=== PATIENT | male | born 1955 | race Caucasian/White ===

== ENCOUNTER 2016-06-11 08:16 | Day surgery (SDC) | payer BC ==
[2016-06-06 10:40] VITALS: BMI 41.3
--- NOTE | 2016-06-10 13:31 | HP ---
DATE OF ADMISSION: 06/11/2016 Dank Turner is a 60-year-old patient seen with left knee adhesions after having undergone left total knee arthroplasty. We discussed options. He elected to proceed with left knee manipulation under anesthesia with steroid injection. Consent was obtained. Past medical history is benign prostatic hyperplasia, osteoarthritis. PAST SURGICAL HISTORY: Left total knee arthroplasty. DAILY MEDICATIONS: 1. Flomax. 2. Lasix. 3. Naprosyn. ALLERGIES: None. SOCIAL HISTORY: Patient denies tobacco use. Physical evaluation of the left knee: His range of motion is -3 to 95 degrees, his incision is well healed. There is no effusion. Ligaments are stable. There is some weakness with quadriceps and hamstring, muscle group. Distal neurovascular exam is intact. Homans and Ollie are both negative. Radiographs of the left knee revealed a stable-appearing total knee arthroplasty. IMPRESSION: 1. Left knee adhesions. 2. Left total knee arthroplasty. PLAN: Manipulation under anesthesia of the left knee with steroid injection.
[~2016-06-11 08:16] MED LIST: FAMOTIDINE 20 MG/2 ML VIAL IV PRN; HYDROmorphone 1 MG/ML 1 ML SYRINGE IVP PRN; LACTATED RINGERS 1,000 ML IV SCH; LIDOCAINE 1% 20 ML VIAL (10MG/ML) FOR IV START INTRADERMA PRN; MIDAZOLAM 2 MG/2 ML VIAL IV PRN; ONDANSETRON 4 MG/2 ML VIAL IVP PRN; ceFAZolin 3 GM in SODIUM CHLORIDE 0.9% 100 ML IVPB ONE
[2016-06-11 08:48] VITALS: TEMP 97.8
[2016-06-11 09:10] LABS: Basophils # (A) 0.1 k/uL (0-0.2); Basophils % (A) 2 %; CH 29.9; CHCM 34.6; Eosinophils # (A) 0.6 k/uL (0-0.7); Eosinophils % (A) 8 %; HCT 47.5 % (39.0-53.0); HDW 3.14; HGB 16.1 gm/dL (13.0-17.5); Luc # (Auto) 0.13; Luc % (Auto) 2; Lymphocytes # (A) 1.4 k/uL (1.0-4.8); Lymphocytes % (A) 21 %; MCH 29.4 pg (25.0-35.0); MCHC 33.8 g/dL (31.0-37.0); MCV 86.9 fL (80.0-100.0); Mean Platelet Volume 7.3; Monocytes # (A) 0.5 k/uL (0-1.0); Monocytes % (A) 8 %; Neutrophils % (A) 59 %; RBC 5.46 m/uL (4.30-5.90); RDW 14.3 % (11.5-15.5); WBC 6.7 k/uL (3.8-10.6); WBC (Perox) 6.38
[2016-06-11] MEDS ORDERED: PROPOFOL 10 MG/ML 20 ML VIAL IV ONE (09:55)
[2016-06-11] MEDS ORDERED: LIDOCAINE 1% INJ 10MG/ML (20 ML MDV) ONE (09:55)
[2016-06-11] MEDS ORDERED: fentaNYL (PF) 50 MCG/ML 2 ML AMP ONE (09:55)
[2016-06-11] MEDS ORDERED: MIDAZOLAM 2 MG/2 ML VIAL ONE (09:55)
[2016-06-11] MEDS ORDERED: BUPIVACAINE (PF) 0.75% 30 ML VIAL SQ ONE (10:18)
[2016-06-11] MEDS ORDERED: TRIAMCINOLONE ACETONIDE 40 MG/ML 1 ML VIAL IM ONE (10:18)
--- NOTE | 2016-06-11 10:24 | P.OP ---
Date of Procedure: 06/11/16 Preoperative Diagnosis: Left knee adhesions/adhesive capsulitis Postoperative Diagnosis: Same Procedure(s) Performed: Manipulation under anesthesia left knee with steroid injection Anesthesia: MAC Surgeon: Valerio Henning Estimated Blood Loss (ml): 0 Pathology: none sent Condition: stable Disposition: PACU Indications for Procedure: 60-year-old patient seen with left knee adhesions after having undergone total knee arthroplasty. We discussed options and he elected to proceed with manipulation under anesthesia left knee with steroid injection. Description of Procedure: Patient was taken to a monitored anesthesia area. IV antibiotics were administered. The patient received IV sedation by the department anesthesia. A manipulation was performed of the left knee achieving full extension and 130 of flexion. The superior lateral aspect left knee was prepped and draped in the normal sterile orthopedic fashion. A solution 1 mL Depo-Medrol and 3 mL quarter percent Marcaine were injected intra-articular under sterile technique. The knee was again taken through range of motion. A sterile Band-Aid was applied. The patient was awakened having tolerated the procedure well.
[2016-06-11] MEDS ORDERED: KETOROLAC 30 MG/ML 1 ML VIAL IVP ONE (10:37)
[2016-06-11 10:57] VITALS: RESP 16
[2016-06-11] MEDS ORDERED: HYDROcodone/APAP 7.5-325MG 1 EACH TAB PO ONE (11:04)
[2016-06-11 11:28] VITALS: BP 116/75; PULSE 78
== END 2016-06-11 11:46 | disposition home or self-care (01) ==
LOC: OR 08:16
PROVIDERS: ATTEND Orthopaedic Surgery
DX: M23.8X2 Other internal derangements of left knee (principal); Z96.652 Presence of left artificial knee joint; E66.01 Morbid (severe) obesity due to excess calories; Z68.41 Body mass index [BMI] 40.0-44.9, adult; N40.0 Benign prostatic hyperplasia without lower urinary tract symptoms; M19.90 Unspecified osteoarthritis, unspecified site; Z79.1 Long term (current) use of non-steroidal anti-inflammatories (NSAID); Z79.899 Other long term (current) drug therapy
CPT/HCPCS: 27570; 85025; 20610; J2250; J3301; J2405; J2001; J3010; J1885; J2704

== ENCOUNTER → 2017-01-30 | Outpatient (CLI) | payer BC | END | disposition home or self-care (01) | LOC: LABPAT 11:46 | PROVIDERS: ATTEND Orthopaedic Surgery | DX: Z01.812 Encounter for preprocedural laboratory examination (principal) | CPT/HCPCS: 87070 ==

== ENCOUNTER 2017-03-11 05:44 | Inpatient (IN) | payer BC ==
--- NOTE | 2017-03-10 09:47 | HP ---
HISTORY AND PHYSICAL REASON FOR ADMISSION: Surgery 03/11/2017. HISTORY OF PRESENT ILLNESS: Dank Liu is a 61-year-old patient seen with symptomatic right knee osteoarthritis. After treatment options were discussed with him, he elected to proceed with right total knee arthroplasty. Consent was obtained. Medical clearance provided by Dr. Timur Green. PAST MEDICAL HISTORY: Past medical history is benign prostatic hyperplasia, osteoarthritis. PAST SURGICAL HISTORY: Left total knee arthroplasty. DAILY MEDICATIONS: Aspirin, Flomax, Lasix. ALLERGIES: None reported. SOCIAL HISTORY: Patient denies tobacco use. PHYSICAL EXAMINATION: Evaluation right knee range of motion is -3 to 115 degrees. Tenderness medial joint line. Positive medial Tico's. Crepitus medial patellofemoral compartments and range of motion. Pain with patellofemoral compression. Ligaments stable. Hip rotation without pain. Distal neurovascular exam is intact. RADIOGRAPHS: Radiographs of the right knee revealed severe medial and moderate to severe patellofemoral compartment osteoarthritis. IMPRESSION: Right knee osteoarthritis. PLAN: Right total knee arthroplasty. Surgery 03/11/2017. MMODL / IJN: [id number] /
[~2017-03-11 05:44] MED LIST changes: +ACETAMINOPHEN TAB 500 MG TAB PO ONE; +DEXAMETHASONE SOD PHOSPHATE 10 MG/ML 1 ML VIAL IV ONE; -FAMOTIDINE 20 MG/2 ML VIAL IV PRN; -LACTATED RINGERS 1,000 ML IV SCH; -LIDOCAINE 1% 20 ML VIAL (10MG/ML) FOR IV START INTRADERMA PRN; +MELOXICAM 7.5 MG TAB PO ONE; +ONDANSETRON 4 MG/2 ML VIAL IVP ONE; -ONDANSETRON 4 MG/2 ML VIAL IVP PRN; +TRANEXAMIC ACID 1,000 MG in SODIUM CHLORIDE 0.9% 100 ML IVPB ONE
[2017-03-11] MEDS ORDERED: LACTATED RINGERS 1,000 ML IV ONE ×2 (06:07→08:20)
[2017-03-11] MEDS ORDERED: MIDAZOLAM 2 MG/2 ML VIAL IVP ONE (06:50)
[2017-03-11] MEDS ORDERED: ROPIVACAINE 1,100 MG, SODIUM CHLORIDE 0.9% 330 ML MISCELLANE PRN ×2 (07:20)
--- NOTE | 2017-03-11 07:23 | P.ONQ ---
Anesthesiology Proc Note - PNB - Peripheral Nerve Block Performed Right Adductor Canal Infusion Time Out Performed: Yes (6:45) Indication: Requested by physician Sedation Type: Sedate with meaningful contact maintained Preparation: Sterile Dressing Position: Supine Catheter: Indwelling Needle Types: Juliano Needle Size: 80mm (3") Needle Gauge: 20 Technique: Ultrasound Injectate: 0.5% Ropivacaine (see comment for volume) Blood Aspirated: No Pain Paresthesia on Injection Noted: No Resistance on Injection: Normal Events: Uneventful and Well Tolerated (20cc Ropivacaine 0.5%)
[2017-03-11] MEDS ORDERED: MIDAZOLAM 2 MG/2 ML VIAL ONE (07:30)
[2017-03-11] MEDS ORDERED: SODIUM CHLORIDE 0.9% 100 ML BAG ONE (07:30)
[2017-03-11] MEDS ORDERED: fentaNYL (PF) 50 MCG/ML 2 ML AMP ONE (07:30)
[2017-03-11] MEDS ORDERED: TRANEXAMIC ACID 1,000 MG/10 ML VIAL ONE (07:30)
[2017-03-11] MEDS ORDERED: diphenhydrAMINE 50 MG/ML 1 ML VIAL ONE (07:30)
[2017-03-11] MEDS ORDERED: ROPIVACAINE 246.25 MG, EPINEPHrine 0.5 MG, KETOROLAC 30 MG, cloNIDine HCL/PF 80 MCG, WA... MISCELLANE ONE ×5 (07:30)
[2017-03-11] MEDS ORDERED: ceFAZolin 3,000 MG in SODIUM CHLORIDE 0.9% IRRIGATIO 3,000 ML IRRIGATION ONE (08:12)
[2017-03-11] MEDS ORDERED: ONDANSETRON 4 MG/2 ML VIAL IVP PRN (09:46)
[2017-03-11] MEDS ORDERED: NALOXONE 0.4 MG/ML 1 ML VIAL IV PRN (09:46)
[2017-03-11] MEDS ORDERED: HYDROcodone/APAP 7.5-325MG 1 EACH TAB PO PRN (09:46)
[2017-03-11] MEDS ORDERED: HYDROmorphone 1 MG/ML 1 ML SYRINGE IVP PRN ×3 (09:46)
--- NOTE | 2017-03-11 09:46 | P.OP ---
Date of Procedure: 03/11/17 Preoperative Diagnosis: Right knee osteoarthritis Postoperative Diagnosis: Right knee osteoarthritis Procedure(s) Performed: Right total knee arthroplasty Implants: 1. Samira persona size 11 right cruciate retaining cemented femur 2. Samira persona size G right cemented tibia 3. Samira persona 10 mm medial congruent polyethylene tibial insert 4. Samira persona 35 mm all polyethylene cemented patella Anesthesia: regional (Adductor canal block), local, spinal Surgeon: Valerio Henning Assistant Chief Train Dispatcher #1: Izaiah Rodriguez Estimated Blood Loss (ml): 100 Pathology: other (Bone) Condition: stable Disposition: PACU Indications for Procedure: 61-year-old patient seen was symptomatically right knee osteoarthritis. After treatment options were discussed, he elected to proceed with right total knee arthroplasty. Operative Findings: See description of procedure Description of Procedure: Patient was taken to the operative suite after having an adductor canal catheter placed by the department of anesthesia. Patient underwent a spinal anesthetic by the department of anesthesia. Patient was given preoperative IV intake antibiotics and TXA. A well-padded tourniquet was placed about the right lower extremity. The lower extremity was then prepped and draped in the normal sterile orthopedic fashion. The extremity was elevated, a tourniquet was insufflated to 350. A standard anterior incision was made sharply through skin. Dissection was taken down through the subcutaneous soft tissues down to the extensor mechanism. A medial arthrotomy was performed, patella was everted and knee was flexed. There was advanced osteoarthritis noted. A proximal tibial cutting guide was positioned. Proximal tibial cut was made. A distal intramedullary femoral cutting guide was positioned, distal femoral cut made. We placed the appropriate sizing guide and selected the appropriate size. A distal 4-in-1 femoral cutting block was positioned, distal femoral cuts were made. We now placed a trial femoral component into position, along with an appropriate size tibial tray and insert. We now took the knee through range of motion and had full extension good flexion and good overall soft tissue balance noted. The patella was everted and a flush cut made with patellar quad tendon. We templated the patella, appropriate drill holes were made. An appropriate trial patella was positioned, knee was taken through full range of motion with the patella tracking very nicely. The trial patella was removed. Drill holes were made through the femoral component. All trial components were removed after marking off the appropriate rotation of the tibia. Retractors were now positioned along the proximal tibia. An appropriate keel punch was made with the appropriate size tibial guide. At this point appropriate size implants were chosen and opened. The joint was irrigated copiously with pulse lavage mechanical irrigation. The deep soft tissues were infiltrated with local analgesic. We mixed antibiotic methylmethacrylate. Once the methyl methacrylate was ready, the tibial component was cemented into place removing any excess methylmethacrylate. The femoral component was cemented into place removing the removing any excess methylmethacrylate. We then inserted the appropriate size polyethylene tibial insert. We made sure that it was locked into position. We took the knee into full extension, and then back in a flexion making sure we had removed any excess methylmethacrylate. The patellar component was then cemented down and secured with clamp. Excess methylmethacrylate removed. We kept the knee in full extension, patellar clamp in position until methylmethacrylate had hardened. Once it had hardened the patellar clamp was removed. The knee was taken through full range of motion. The patella tracked nicely. There was good soft tissue balancing. The tourniquet was now released. Additional hemostasis was achieved via electrocautery. A second gram of TXA was given. The wound was irrigated with pulse lavage mechanical irrigation. The extensor mechanism was repaired with Vicryl. We checked the repair with range of motion and it was stable. The subcutaneous soft tissues were repaired with Vicryl in layers. The skin was approximated with pernio/Dermabond. Sterile dressings were applied followed by loose web roll and Pedro bandage. The patient was transferred to a bed, and taken to recovery in stable and satisfactory condition. Patrick BLAIR assisted with the procedure.
--- NOTE | 2017-03-11 10:57 | XR ---
EXAMINATION TYPE: XR knee limited RT DATE OF EXAM: 03/11/2017 COMPARISON: NONE TECHNIQUE: Two views submitted HISTORY: Post op FINDINGS: There is a prosthetic knee in near anatomic alignment. There is soft tissue edema and emphysema. IMPRESSION: 1. Postoperative change. Appears in near-anatomic alignment
[2017-03-11 11:16] VITALS: BMI 49.8
[2017-03-11] MEDS: LACTATED RINGERS 1,000 ML IV SCH ×3 (12:37→22:22)
[2017-03-11] MEDS: traMADol 50 MG TAB PO SCH ×3 (12:39→21:20)
[2017-03-11] MEDS: HYDROcodone/APAP 7.5-325MG 1 EACH TAB PO PRN (14:01)
[2017-03-11] MEDS: hydrOXYzine PAMOATE 25 MG CAP PO PRN (14:02)
[2017-03-11] MEDS ORDERED: FUROSEMIDE 20 MG TAB PO PRN (15:49)
[2017-03-11] MEDS: ceFAZolin 3 GM in SODIUM CHLORIDE 0.9% 100 ML IVPB SCH ×2 (15:52→22:34)
[2017-03-11] MEDS ORDERED: MELATONIN 5 MG TABLET PO SCH (21:00)
[2017-03-11] MEDS ORDERED: SENNOSIDES-DOCUSATE SODIUM 1 EACH TAB PO SCH (21:00)
[2017-03-11] MEDS: ENOXAPARIN 30 MG/0.3 ML SYRINGE SQ SCH (21:21)
[2017-03-12] MEDS: HYDROcodone/APAP 7.5-325MG 1 EACH TAB PO PRN ×2 (04:14→10:37)
[2017-03-12] MEDS: LACTATED RINGERS 1,000 ML IV SCH ×3 (06:15→09:52)
[2017-03-12 06:57] VITALS: BP 125/75; PULSE 68; RESP 16; TEMP 97.7
[2017-03-12 07:23] LABS: Basophils % (A) 0 %; CH 29.7; CHCM 32.9; Eosinophils # (A) 0.1 k/uL (0-0.7); Eosinophils % (A) 1 %; HGB 13.7 gm/dL (13.0-17.5); Luc % (Auto) 2; Lymphocytes # (A) 1.4 k/uL (1.0-4.8); Lymphocytes % (A) 13 %; MCH 28.9 pg (25.0-35.0); MCHC 31.8 g/dL (31.0-37.0); MCV 90.9 fL (80.0-100.0); Mean Platelet Volume 6.7; Monocytes # (A) 0.9 k/uL (0-1.0); Monocytes % (A) 9 %; Neutrophils # (A) 7.9 k/uL (1.3-7.7); Neutrophils % (A) 75 %; RBC 4.73 m/uL (4.30-5.90); RDW 14.3 % (11.5-15.5); WBC 10.5 k/uL (3.8-10.6); WBC (Perox) 10.28
--- NOTE | 2017-03-12 07:40 | CONS ---
CONSULTATION DATE OF CONSULTATION: 03/10/2017 REASON FOR CONSULTATION: Medical management requested by Dr. Henning. CONSULTATION: This is a 61-year-old patient of Dr. Green who has undergone a right total knee arthroplasty. Some pain is present, no nausea or vomiting. Chronic stable medical conditions include BPH, osteoarthritis. Denies any cardiac history. Did tolerate his supper. REVIEW OF SYSTEMS: CONSTITUTIONAL: None. HEENT none. RESPIRATORY: None. CARDIOVASCULAR: None. GASTROINTESTINAL: None. GENITOURINARY: Some BPH symptoms. DERMATOLOGICAL: None. HEMATOLOGICAL: None. LYMPHATIC: None. PSYCHIATRY: None. NEUROLOGICAL: None. PAST HISTORY: BPH, osteoarthritis, obesity, some environmental allergies, hepatitis as a child. PAST SURGICAL HISTORY: Hernia repair, colonoscopy, type 2, bilateral knee arthroscopy, left total knee. SOCIAL HISTORY: Patient smoked a 1-1/2 pack for 30 years. Stopped 2015. Retired from power grader operator. . FAMILY HISTORY: DVT and prostate cancer. HOME MEDICATIONS: Flomax 0.4 mg q.48 hours, naproxen 500 mg p.o. q.12, Lasix 20 mg p.o. daily p.r.n., Tylenol p.r.n. ALLERGIES: None. PHYSICAL EXAMINATION: Temperature 98, pulse 81, respirations 18, blood pressure 135/77, pulse ox 96% on room air. GENERAL APPEARANCE: Well built, BMI of 49.9, sitting up, not in distress. EYES: Pupils equal, conjunctivae normal. HEENT: Oral cavity normal. Neck, short thick, JVD unable to assess. Mass not palpable. RESPIRATORY EFFORT: Normal lungs, distant breath sounds. CARDIOVASCULAR: Heart sounds muffled, no edema. ABDOMEN: Soft, nontender. Liver and spleen not palpable. LYMPHATIC: No lymph nodes palpable in neck or axillae. PSYCHIATRY:: Alert and orient x3, mood and affect normal. NEUROLOGICAL: Pupils equal. Cranial nerves grossly intact. Power and sensation grossly intact. EXTREMITIES: Right knee in a dressing. INVESTIGATIONS: Potassium 4.7. ASSESSMENT: 1. Right total knee arthroplasty. 2. Benign prostatic hypertrophy. 3. Primary osteoarthritis. 4. Morbid obesity, body mass index of 49.9. PLAN: Patient is getting Lovenox for DVT prophylaxis. Home medications are to be resumed. Patient should see a dietitian for weight loss measures and follow up with his family doctor. Thank you, Dr. Henning. CHAYO / CLINTON: [id number] /
[2017-03-12] MEDS ORDERED: MELOXICAM 7.5 MG TAB PO SCH (09:00)
[2017-03-12] MEDS ORDERED: FAMOTIDINE 20 MG TAB PO SCH (09:00)
[2017-03-12] MEDS ORDERED: TAMSULOSIN 0.4 MG CAP.ER.24H PO SCH (09:00)
[2017-03-12] MEDS: ENOXAPARIN 30 MG/0.3 ML SYRINGE SQ SCH (09:19)
[2017-03-12] MEDS: traMADol 50 MG TAB PO SCH ×2 (09:21→13:06)
--- NOTE | 2017-03-12 10:01 | P.PN ---
Progress Note - Text Progress Note Date: 03/12/17 61-year-old male status post right total knee replacement patient is postop day #1 adductor canal catheter day #2. The patient was sitting up in bed no complaints pain-free VAS pain score of 0/10 itching no side effects had good overnight sleep
[2017-03-12] MEDS: hydrOXYzine PAMOATE 25 MG CAP PO PRN (10:38)
--- NOTE | 2017-03-12 13:01 | PN ---
PROGRESS NOTE DATE OF SERVICE: 03/12/2017 PRESENTING COMPLAINT: Right knee surgery. INTERVAL HISTORY: Patient is status post right knee surgery. Pain is controlled. Did work with therapy. Had his breakfast. No nausea or vomiting. No dizziness. REVIEW OF SYSTEMS: Review of systems done for constitutional, cardiovascular, GI, pulmonary, musculoskeletal; relevant findings as above. CURRENT MEDICATIONS: Current medications are reviewed. PHYSICAL EXAMINATION: On examination, temperature 97.7, pulse 68, respirations 16, blood pressure 125/75, pulse ix 96% on 2 L. GENERAL APPEARANCE: Sitting up, comfortable. EYES: Pupils equal. Conjunctivae normal. NECK: JVD not raised. Mass not palpable. RESPIRATORY: Effort normal. LUNGS: Distant breath sounds. CARDIOVASCULAR: Heart sounds muffled, no edema. ABDOMEN: Soft, nontender. Liver and spleen not palpable. PSYCHIATRY: Alert and oriented x3. Mood and affect normal. EXTREMITIES: The right knee has got a dressing in place. INVESTIGATIONS: White count 10.5, hemoglobin 13.7. ASSESSMENT: 1. Right total knee arthroplasty. 2. Benign prostatic hypertrophy. 3. Primary osteoarthritis. 4. Morbid obesity, body mass index 49.9. PLAN: Continue medication and treatment plan. Care was discussed with the patient. Thank you Dr. Henning. MMODL / IJN: [id number] /
--- NOTE | 2017-03-12 13:06 | P.PN ---
Subjective Progress Note Date: 03/12/17 Principal diagnosis: Status post right total knee arthroplasty Patient is seen today resting in his hospital bed, he appears coughing. Pain is well-controlled. Exam of the low therapy, urinary catheters been discontinued. Patient denies any headaches, lightheadedness, chest pain, shortness of breath. Objective - Vital Signs Vital signs: Vital Signs Temp 97.7 F 03/12/17 06:55 Pulse 68 03/12/17 06:55 Resp 16 03/12/17 06:55 BP 125/75 03/12/17 06:55 Pulse Ox 96 03/12/17 06:55 Intake & Output 03/11/17 03/12/17 03/12/17 18:59 06:59 18:59 Intake Total 1731 2250 850 Output Total 1225 750 425 Balance 506 1500 425 Weight 153.314 kg Intake: IV 1151 Intake, IV Titration 100 1250 Amount Lactated Ringers 1,000 ml 1150 @ 100 mls/hr IV .Q10H [facility] Rx#:[id number] Lactated Ringers 1,000 ml 100 @ 20 mls/hr IV .Q24H [facility] Rx#:[id number] ceFAZolin 3 gm In Sodium 100 Chloride 0.9% 100 ml @ 100 mls/hr IVPB Q8HR [facility] Rx#:[id number] Oral 480 1000 850 Output: Urine 1125 750 425 Uretheral (Rucker) 300 Estimated Blood Loss 100 Other: Voiding Method Indwelling Catheter Indwelling Catheter Urinal - Exam Right lower extremity: Incision is clean, dry, and intact. The prineo tape is in good condition. There is minimal soft tissue swelling and ecchymosis surrounding the medial and lateral aspects of the incision. Calf is soft, no tenderness with palpation. Plantar flexion, dorsiflexion, EHL, FHL are intact. Sensory exam to light touch throughout the extremity is intact, dorsal pedis pulses 2+. - Labs CBC & Chem 7: 03/12/17 07:00 03/11/17 06:20 Labs: Abnormal Lab Results - Last 24 Hours (Table) 03/12/17 Range/Units 07:00 Neutrophils # 7.9 H (1.3-7.7) k/uL Assessment and Plan Plan: Assessment: 1. Postop day 1 status post right total knee arthroplasty Plan: 1. Pain control, continue use of oral medication 2. GI and DVT prophylaxis, checking on co-pay for Xarelto 10 mg 3. Encourage incentive spirometer 4. Daily dressing changes/ice and elevate 5. Continue with therapy and use of CPM machine 6. Medical recommendations 7. Discharge planning: Patient will likely be discharged home today Time with Patient: Less than 30
--- NOTE | 2017-04-14 22:00 | CONS ---
CONSULTATION ADDENDUM: DATE OF CONSULTATION: 03/10/17. CONSULTATION: This is a 61-year-old patient of Dr. Green'rafael who has undergone a right total knee arthroplasty. Patient having pain in the right knee for quite some time, progressively getting worse. Of course pain is worse with weightbearing and better with rest. Does get better with pain medications. Hence, decision was made to proceed with surgery. Exacerbating factors are weightbearing and relieving factors are when weight is taken off the knee. Pain is limited to the knee with no radiation. MMODL / IJN: [id number] /
== END 2017-03-12 15:43 | disposition home health service (06) | DRG 470 ==
LOC: 2ORMAIN 05:44 → 3SUR 10:02
PROVIDERS: ADMIT Orthopaedic Surgery; ATTEND Orthopaedic Surgery
PROC: 0SRC0J9 Replacement of Right Knee Joint with Synthetic Substitute, Cemented, Open Approach (ICD-10-PCS; principal; 2017-03-11 07:30)
DX: M17.11 Unilateral primary osteoarthritis, right knee (principal); N13.8 Other obstructive and reflux uropathy; E66.01 Morbid (severe) obesity due to excess calories; D17.9 Benign lipomatous neoplasm, unspecified; N40.1 Benign prostatic hyperplasia with lower urinary tract symptoms; M19.049 Primary osteoarthritis, unspecified hand; G47.30 Sleep apnea, unspecified; M67.40 Ganglion, unspecified site; Z68.42 Body mass index [BMI] 45.0-49.9, adult; Z87.891 Personal history of nicotine dependence; Z96.652 Presence of left artificial knee joint; Z82.49 Family history of ischemic heart disease and other diseases of the circulatory system
CPT/HCPCS: 84132; 85025; 88300